=== PATIENT | male | born 1945 | race Hispanic/Latino ===

== ENCOUNTER 2020-01-03 11:28 | Day surgery (SDC) | payer MEDICARE ==
[~2020-01-03 11:28] MED LIST: WATER FOR IRRIG STERILE 2000 ML IR ONE
[2020-01-03] MEDS ORDERED: LACTATED RINGERS 1,000 ML IV SCH (13:00)
[2020-01-03] MEDS ORDERED: MIDAZOLAM 2 MG/2 ML INJ IV SCH (13:19)
--- NOTE | 2020-01-03 13:19 | Anesthesia Consultation ---
Anesthesia Consult and Med Hx Date of service: 01/03/20 - Airway Anesthetic Teeth Evaluation: Good ROM Head & Neck: Adequate Mental/Hyoid Distance: Adequate Mallampati Class: Class II Intubation Access Assessment: Good - Pulmonary Exam CTA: Yes - Cardiac Exam Cardiac Exam: RRR - Pre-Operative Health Status ASA Pre-Surgery Classification: ASA2 Proposed Anesthetic Plan: General - Pulmonary Hx Smoking: No Hx Sleep Apnea: No (LIZETH PRE SCREEN HIGH RISK.) - Cardiovascular System Hx Hypertension: Yes - Other Systems Hx Cancer: No
--- NOTE | 2020-01-03 13:20 | Anesthesia Day of Surgery ---
Anesthesia Day of Surgery - Day of Surgery Patient Examined: Yes Patient H&P Reviewed: Yes Patient is NPO: Yes
[2020-01-03] MEDS ORDERED: propofoL 200 MG/20 ML VIAL IV ONE (13:41)
[2020-01-03] MEDS ORDERED: HYDROmorphone 1 MG/1 ML INJ ONE (13:41)
[2020-01-03] MEDS ORDERED: LIDOCAINE MPF (2%) 20 MG/1 ML VIAL 5 ML ONE (13:41)
[2020-01-03] MEDS ORDERED: WATER FOR IRRIG STERILE 2000 ML IR ONE (14:13)
--- NOTE | 2020-01-03 14:42 | Post Operative Note ---
Date of procedure: 01/03/20 Pre-op diagnosis: baugh Post-op diagnosis: same Findings: sig baugh elevated bn Procedure: cysto rezum Anesthesia: GETA Surgeon: MOUNA CHAMBERS Estimated blood loss: none Pathology: none Condition: stable Disposition: PACU
--- NOTE | 2020-01-03 14:43 | Discharge Summary ---
Short Stay Discharge Plan Activity: other (no straining ) Weight Bearing Status: Full Weight Bearing Diet: low fat, low cholesterol, low salt Special Instructions: other (fluids ) Durable Medical Equipment Needed Upon Discharge: other (home with dangelo ) Follow up with: PRIMARY CARE, [Primary Care Provider] - 7 Days MOUNA CHAMBERS MD [Staff Physician] - 7 Days
[2020-01-03 15:21] VITALS: BP 163/86
--- NOTE | 2020-01-16 14:15 | Operative Report ---
PREOPERATIVE DIAGNOSIS: Bladder outlet obstruction. POSTOPERATIVE DIAGNOSIS: Bladder outlet obstruction. PROCEDURE: Cystoscopy, resume therapy. SURGEON: Dr. Vazquez. ANESTHESIA: General. FINDINGS: This is a gentleman with significant elevated IPSS score with a prominent median bar. He now presents for treatment. DESCRIPTION OF PROCEDURE: The patient was brought to the operating room and placed on the operating table. ____. Two sticks on the right, two sticks on the left and one median bar. The patient tolerated the procedure well. No significant complications. No significant bleeding. Dunaway catheter was easily placed, brought to recovery in stable condition. JOB# [id number] GIO/RUBIN
== END 2020-01-03 15:58 | disposition home or self-care (01) ==
LOC: OR 11:28
PROVIDERS: ATTEND Urology
DX: N32.0 Bladder-neck obstruction (principal); N40.0 Benign prostatic hyperplasia without lower urinary tract symptoms; R39.12 Poor urinary stream; I10 Essential (primary) hypertension; E78.00 Pure hypercholesterolemia, unspecified; Z88.8 Allergy status to other drugs, medicaments and biological substances; Z79.899 Other long term (current) drug therapy; Z79.82 Long term (current) use of aspirin; Z88.0 Allergy status to penicillin; Z98.49 Cataract extraction status, unspecified eye; Z98.890 Other specified postprocedural states
CPT/HCPCS: 53854; A4217; J1170; J1956; J2250; J2704; J7120